=== PATIENT | female | born 1980 | race Caucasian/White ===

== ENCOUNTER 2018-03-28 13:52 | Emergency (ER) | payer BC, MEDICARE ==
[2018-03-28 14:53] VITALS: BP 107/76
--- NOTE | 2018-03-28 15:25 | ED ---
Throat Pain/Nasal Congestion - HPI Summary HPI Summary: 38 yr old female with the complaint of bilateral sinus congestion, pain, post nasal drip for about one week and now three days of right ear pain. Pain is moderate. No fever or chills. No other complaints. - History of Current Complaint Chief Complaint: UCGeneralIllness Time Seen by Provider: 03/28/18 15:04 - Allergies/Home Medications Allergies/Adverse Reactions: Allergies Allergy/AdvReac Type Severity Reaction Status Date / Time cephalexin [From Keflex] Allergy Hives Verified 03/28/18 14:47 Penicillins Allergy Unknown Verified 03/28/18 14:47 Reaction Details sulfamethoxazole AdvReac See Comment Verified 03/28/18 14:47 [From Bactrim] trimethoprim [From Bactrim] AdvReac See Comment Verified 03/28/18 14:47 Home Medications: Home Medications ALPRAZolam TAB* [Xanax TAB*] 0.5 mg PO BID PRN 03/28/18 [History Confirmed 03/28] Citalopram TAB* [CeleXA TAB*] 40 mg PO DAILY 03/28/18 [History Confirmed ] Topiramate [Topamax] 75 mg PO BID 03/28/18 [History Confirmed 03/28/18] Ustekinumab [Stelara] 90 mg SQ SEE INSTRUCTIONS 03/28/18 [History Confirmed 02/03] Zolpidem TAB* [Ambien TAB*] 10 mg PO BEDTIME PRN 03/28/18 [History Confirmed 02/03] busPIRone TAB* [Buspar TAB*] 5 mg PO BID 03/28/18 [History Confirmed 03/28/18] PMH/Surg Hx/FS Hx/Imm Hx - Surgical History Surgery Procedure, Year, and Place: hysterectomy 2014. total collectomy. colostomy that was reversed. 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 Denies: Traveled Outside the [place] in Last 30 Days - Family History Known Family History: Positive: None - Social History Occupation: Employed Full-time Alcohol Use: Rare Substance Use Type: Reports: None Smoking Status (MU): Never Smoked Tobacco Review of Systems Constitutional: Negative Positive: Ear Ache, Nasal Discharge All Other Systems Reviewed And Are Negative: Yes Physical Exam Triage Information Reviewed: Yes Vital Signs On Initial Exam: Initial Vitals Temp Pulse Resp BP Pulse Ox 97.7 F 74 16 107/76 100 03/28/18 14:44 03/28/18 14:44 03/28/18 14:44 03/28/18 14:44 03/28/18 14:44 Vital Signs Reviewed: Yes Appearance: Positive: Well-Appearing, No Pain Distress Skin: Positive: Warm, Skin Color Reflects Adequate Perfusion Head/Face: Positive: Normal Head/Face Inspection Eyes: Positive: EOMI ENT: Positive: Nasal congestion, Nasal drainage, TM red - right with effusion, Sinus tenderness, Uvula midline Neck: Positive: Nontender Respiratory/Lung Sounds: Positive: Clear to Auscultation, Breath Sounds Present Cardiovascular: Positive: RRR. Negative: Murmur Abdomen Description: Positive: Nontender Musculoskeletal: Positive: Strength/ROM Intact Neurological: Positive: Sensory/Motor Intact, Alert, Oriented to Person Place, Time, CN Intact II-III Psychiatric: Positive: Normal - Shanice Coma Scale Best Eye Response: 4 - Spontaneous Best Motor Response: 6 - Obeys Commands Best Verbal Response: 5 - Oriented Coma Scale Total: 15 Diagnostics - Vital Signs Vital Signs Temp Pulse Resp BP Pulse Ox 03/28/18 14:44 97.7 F 74 16 107/76 100 - Laboratory Lab Statement: Any lab studies that have been ordered have been reviewed, and results considered in the medical decision making process. EENT Course/Dx - Course Course Of Treatment: 38 yr old with right otitis media, and sinusitis. will Rx with Doxy. She has few options for antibiotics due to allergies and drug interactions with her meds. - Diagnoses Provider Diagnoses: Sinusitis, Otitis media Discharge - Sign-Out/Discharge Documenting (check all that apply): Patient Departure All imaging exams completed and their final reports reviewed: No Studies - Discharge Plan Condition: Good Disposition: HOME Prescriptions: Doxycycline Monohydrate 100 mg PO BID #20 capsule Patient Education Materials: Sinusitis (ED), Ear Infection (ED) Referrals: Carlos Warner MD [Primary Care Provider] - 2 Days - Billing Disposition and Condition Condition: GOOD Disposition: Home
== END 2018-03-28 15:27 | disposition home or self-care (01) ==
LOC: UCCORT 13:52
DX: H66.91 Otitis media, unspecified, right ear (principal); Z88.0 Allergy status to penicillin; Z88.1 Allergy status to other antibiotic agents; J32.9 Chronic sinusitis, unspecified
CPT/HCPCS: 99202; G0463